=== PATIENT | female | born 1995 | race African-American/Black ===

== ENCOUNTER 2017-08-03 16:24 | Emergency (ER) | payer SELFPAY ==
[~2017-08-03] VITALS: Ht 170.2 cm; Wt 59.0 kg
[~2017-08-03 16:24] MED LIST: CYCLOBENZAPRINE10 MG ORAL; IBUPROFEN600 MG ORAL
[2017-08-03] MEDS ORDERED: NKM (16:46)
[2017-08-03] MEDS ORDERED: Lidocaine 1% Plain 30 ml INJ ONE (17:15)
[2017-08-03] MEDS ORDERED: SULFAMETHOXAZO473 ML ORAL (17:38)
--- NOTE | 2017-08-03 17:43 | Emergency Room Report ---
History of Present Illness General Chief Complaint: Skin Rash/Abscess Source: Patient Present Illness HPI 21-year-old female p/w redness/swelling/bump to r axilla for 2 days. ? pain to the area, denies purulent drainage. No fever or chills. Denies hx of abscesses in the past. Allergies: Coded Allergies: No Known Allergies (Unverified , 09/24/15) Patient History Past Medical History: see triage record Past Surgical History: none Pertinent Family History: none Last Menstrual Period: 07/10/17 Reviewed Nursing Documentation: PMH: Agreed; PSxH: Agreed Nursing Documentation-PMH Past Medical History: No Stated History Review of Systems All Other Systems: negative except mentioned in HPI Physical Exam Vital Signs Date Time Temp Pulse Resp B/P (MAP) Pulse Ox O2 Delivery O2 Flow Rate FiO2 08/03/17 16:43 98.5 70 17 107/66 99 Room Air 98.4 Sp02 EP Interpretation: reviewed, normal General Appearance: normal inspection, well appearing, no apparent distress, alert, GCS 15, non-toxic Head: normocephalic, atraumatic Eyes: bilateral eye normal inspection, bilateral eye PERRL, bilateral eye EOMI ENT: normal ENT inspection, normal pharynx, normal voice, moist mucus membranes Neck: normal inspection, full range of motion, supple Respiratory: normal inspection, lungs clear, normal breath sounds, no respiratory distress, no retraction, no wheezing, speaking full sentences, chest symmetrical Cardiovascular #1: normal inspection, regular rate, rhythm, no edema, normal capillary refill Cardiovascular #2: 2+ radial (R), 2+ radial (L) Gastrointestinal: normal inspection, non tender, soft, non-distended, no guarding Musculoskeletal: normal inspection, back normal, normal range of motion, non- tender Neurologic: normal inspection, alert, oriented x3, responsive, motor strength/ tone normal, sensory intact, normal gait, speech normal Psychiatric: normal inspection, judgement/insight normal, memory normal Skin: other - 2 cm round fluctuant abscess palpated in right axilla without purulent drainage Procedures Incision and Drainage Incision and Drainage : Consent: Verbal Site: R axilla Blade Size: 11 I & D Procedure: betadine prep, sterile drapes applied, sterile dressing applied, gauze wick placed Wound Location: upper extremity Wound Length (cm): 2 Wound Explored: clean Irrigated w/ Saline (ccs): 4 Anesthesia: 1% Lidocaine Patient Tolerated: Well Complications: None Medical Decision Making Diagnostic Impression: Primary Impression: Axillary abscess ER Course 21-year-old female p/w bump/swelling to axilla DDX: abscess Plan: Incision and drainage, DC home with ABX ER course: Incision and drainage performed with 1 cc purulent drainage obtained. No complications Disposition: Patient discharged to home with Bactrim Patient instructed to follow up in ED or primary care doctor's office to wound recheck in 1 week without fail. Patient cautioned to return to ED if there is rapid spread of rash, high fever or chills. Patient verbalized understanding and agrees with plan. Please note that this Emergency Department Report was dictated using [employer] spotter technology software, occasionally this can lead to erroneous entry secondary to interpretation by the dictation equipment. Last Vital Signs Date Time Temp Pulse Resp B/P (MAP) Pulse Ox O2 Delivery O2 Flow Rate FiO2 08/03/17 16:43 98.5 70 17 107/66 99 Room Air 98.4 Disposition: HOME, SELF-CARE Condition: Stable Scripts Sulfamethoxazole/Trimethoprim Susp* (BACTRIM SUSP*) 473 Ml Oral.susp 20 ML ORAL TWICE A DAY, #280 ML Prov: Shirin Sorensen M.D. 08/03/17 Patient Instructions: Abscess Additional Instructions: PLEASE SEE YOUR PCP IN 1 WEEK FOR WOUND RE CHECK Shirin Sorensen M.D. Aug 03, 2017 17:43
[2017-08-03 17:53] VITALS: BP 107/66
== END 2017-08-03 18:15 | disposition home or self-care (01) ==
LOC: EMR 18:12
DX: L02.411 Cutaneous abscess of right axilla (principal)
CPT/HCPCS: 10060; 99283; J2001